=== PATIENT | female | born 1990 | race Caucasian/White ===

== ENCOUNTER 2017-01-03 11:27 | Emergency (ER) | payer MEDICAID ==
[~2017-01-03] VITALS: Ht 162.6 cm; Wt 99.3 kg
[2017-01-03 11:31] VITALS: BP 133/72
[2017-01-03] MEDS ORDERED: NACL 0.9% 1,000 ML IV SCH (11:38)
[2017-01-03] MEDS ORDERED: ONDANSETRON 4 MG/2 ML VIAL IVP ONE (11:40)
[2017-01-03] MEDS ORDERED: KETOROLAC 30 MG/ML VIAL IVP ONE (11:45)
[2017-01-03 12:38] LABS: BILIRUBIN,URINE 1+ (NEGATIVE); BLOOD, URINE TRACE-I (NEGATIVE); COLOR,URINE YELLOW (YELLOW); LEUKOCYTE ESTERASE ,URINE NEGATIVE (NEGATIVE); NITRITE, URINE NEGATIVE (NEGATIVE); PROTEIN,URINE 1+ (NEGATIVE); UGLUCOSE NEGATIVE (NEGATIVE)
[2017-01-03 12:44] LABS: BASOPHILS # (AUTO) 0.1 K/uL (0.00-0.22); BASOPHILS % (AUTO) 0.9 % (0.0-2.0); EOSINOPHILS # (AUTO) 0.1 K/uL (0-0.4); EOSINOPHILS % (AUTO) 1.3 % (0.0-4.0); HEMATOCRIT 42.4 % (36-48); LYMPHOCYTES % (AUTO) 15.9 % (20.5-51.1); MEAN CORPUSCULAR HEMOGLOBIN 29 pg (27-31); MEAN CORPUSCULAR HGB CONC 33 g/dL (33-37); MEAN CORPUSCULAR VOLUME 87 fL (80-94); MONOCYTES # (AUTO) 0.5 K/uL (0.8-1.0); MONOCYTES % (AUTO) 8.6 % (1.7-9.3); NEUTROPHILS # (AUTO) 4.4 K/uL (1.8-7.7); NEUTROPHILS % (AUTO) 73.3 % (42.2-75.2); PLATELET COUNT (AUTO) 157 K/uL (140-450); WHITE BLOOD COUNT (AUTO) 6.1 K/uL (4.8-10.8)
--- NOTE | 2017-01-03 12:58 | NUR ---
Patient to OF.
--- NOTE | 2017-01-03 12:59 | NUR ---
Dr. Cavanaugh evaluating patient.
--- NOTE | 2017-01-03 13:00 | NUR ---
PATIENT PRESENTS TO ED WITH FATIGUE, GENERALIZED ACHES, SUBJECTIVE F/C . PT STATES FEELING TIRED AND SORE ALL OVER, NASAL CONGESTION . DENIES N/V/D; SKIN IS PINK/WARM/DRY; AAOX4 WITH EVEN AND STEADY GAIT; LUNGS CLEAR BL; HR EVEN AND REGULAR; PATIENT STATES PAIN OF 9/10 AT THIS TIME; VSS; PATIENT POSITIONED FOR COMFORT; HOB ELEVATED; BEDRAILS UP X2; BED DOWN. ER MD MADE AWARE OF PT STATUS.
[2017-01-03 13:01] LABS: ALBUMIN 3.2 g/dL (3.4-5.0); ANION GAP 8.3 (8-16); CALCIUM 8.3 mg/dL (8.5-10.1); CARBON DIOXIDE 31.2 mmol/L (21-32); CREATININE 0.7 mg/dL (0.6-1.3); POTASSIUM 3.5 mmol/L (3.5-5.1); TOTAL BILIRUBIN 0.4 mg/dL (0.0-1.0); TOTAL PROTEIN, SERUM 8.7 g/dL (6.4-8.2)
[2017-01-03 13:11] LABS: APPEARANCE,URINE SL HAZY (CLEAR); ICTOTEST NEGATIVE (NEGATIVE)
[2017-01-03 13:12] LABS: RBC,URINE 0-5 (RARE) /HPF (0-5); WBC,URINE 0-5 (RARE) /HPF (0-5)
[2017-01-03 13:14] LABS: BACTERIA,URINE FEW /HPF (None Seen)
--- NOTE | 2017-01-03 14:24 | NUR ---
Patient discharged with v/s stable. Written and verbal after care instructions given and explained. Patient alert, oriented and verbalized understanding of instructions. Ambulatory with steady gait. All questions addressed prior to discharge. ID band removed. Patient advised to follow up with PMD. Rx of tamiful, tylenol, robitussin given. Patient educated on indication of medication including possible reaction and side effects. Opportunity to ask questions provided and answered.
[2017-01-03 14:26] VITALS: BP 122/56
== END 2017-01-03 14:24 | disposition home or self-care (01) ==
LOC: MED 11:27
DX: R68.89 Other general symptoms and signs (principal); R51 Headache
CPT/HCPCS: 36415; 80053; 81001; 81025; 82150; 83690; 85025; 87804; 96361; 96374; 96375; 99284; J1885; J2405; J7030

== ENCOUNTER 2019-05-31 17:21 | Emergency (ER) | payer MEDICAID ==
[~2019-05-31] VITALS: Ht 154.9 cm; Wt 86.2 kg
[2019-05-31 17:54] VITALS: BP 159/88
--- NOTE | 2019-05-31 19:03 | NUR ---
C/O PRURITUS WITH GENERALIZED HIVES; DENIES ANY MEDS OR NEW FOODS FULL CLEAR SPEECH, DENIES SOB
[2019-05-31] MEDS ORDERED: FAMOTIDINE 20 MG TAB PO ONE (19:45)
[2019-05-31] MEDS ORDERED: diphenhydrAMINE 50 MG CAP PO ONE (19:45)
[2019-05-31] MEDS ORDERED: methylPREDNISolone SS 125 MG in WATER STERILE 2 ML IM ONE (19:45)
[2019-05-31 20:10] VITALS: BP 113/72
--- NOTE | 2019-05-31 20:10 | NUR ---
DISCHARGE PAPERS GIVEN TO PT. PT STATES RELIEF. AFEBRILE WITH VSS. RX OF BENADRYL, PREDNISONE, AND LORATADINE GIVEN. SIDE EFFECTS EXPLAINED. INSTRUCTED TO F/U WITH PCP AND WHEN TO RETURN TO ER. PT VERBALLIZED UNDERSTANDING OF DC INSTRUTIONS. ALL QUESTIONS ANSWERED.
== END 2019-05-31 20:10 | disposition home or self-care (01) ==
LOC: MED 17:21
DX: T78.49XA Other allergy, initial encounter (principal); X58.XXXA Exposure to other specified factors, initial encounter
CPT/HCPCS: 96372; 99283; J2930; Q0163